=== PATIENT | male | born 1955 | race Caucasian/White ===

== ENCOUNTER 2016-10-16 11:56 | Inpatient (IN) | payer MEDICARE, MEDICAID ==
[2016-10-16] MEDS ORDERED: Sodium Chloride 0.9% 1,000 ML IV ONE ×2 (12:29→16:52)
--- NOTE | 2016-10-16 12:34 | ED Physician Chart ---
Chief Complaint/HPI - Patient Information Date Seen:: 10/16/16 Time Seen:: 12:15 Chief Complaint:: CHEST CONGESTION TODAY, VOMITTED X 1 History of Present Illness:: This 61 year-old male was brought to the emergency department by an EMS rescue for evaluation of chest congestion and possible aspiration pneumonia. The patient is severely demented and is unable to provide any historical information. Patient is unable to provide his own name. Notes which accompanied the patient states that his had onset of cough and chest congestion today and that in the past he's been diagnosed with aspiration pneumonia. He has a gastrostomy tube that is his source of feeding. The patient was observed to have vomited times one today. There was no additional information with the transport paperwork. Allergies:: Allergies Allergy/AdvReac Type Severity Reaction Status Date / Time BEE STING Allergy Uncoded 12/25/14 07:41 Vitals:: Vital Signs - 8 hr 10/16/16 12:09 Temp 98.7 F HR 92 RR 16 BP 117/58 O2 Sat % 90 Review of Systems - Review of Systems General/Constitutional: Other (the patient is to mentally impaired to obtain a reliable review of systems.) Past Medical History - Past Medical History Past Medical History: HTN, Asthma/COPD, PUD/GERD, Thyroid disorder, Dementia, Other (hypothyroid and history of bronchitis.) Social History: Care Facility (unknown surgical history.) Family Medical History - Family Member Mother History Unknown: Yes Ethnicity: Living Status: Unknown Hx Family Cancer: (BREE) Hx Family Coronary Artery Disease: (BREE) Hx Family Congestive Heart Failure: (BREE) Hx Family Hypertension: (BREE) Hx Family Stroke: (BREE) Hx Family Diabetes: (BREE) Hx Family Seizures: (BREE) Hx Family Dementia: (BREE) Hx Family AIDS: (BREE) Hx Family HIV: No Hx Family COPD: (BREE) Hx Family Hepatitis: (BREE) Hx Family Psychiatric Problems: (BREE) Hx Family Tuberculosis: (BREE) Physical Exam - Physical Examination General/Constitutional: Awake (it appears to be alert and does not follow simple commands such as to gout your tongue, squeeze my fingers, or look at the flashlight.) Head: Atraumatic Eyes: PERRL, EOMI Other Eyes comments:: The patient has a mild discharge of purulent material from both eyes. There is minimal hyperemia of the conjunctiva. Skin: Nl inspection, No rash, No skin lesions, No ecchymosis, No lymphadenopathy ENMT: External ears, nose nl, Nasal exam nl Other ENMT comments:: Patient is missing multiple teeth and what teeth remain are affected by extensive caries. Patient's gag reflex is intact. Other Neck comments:: No JVD appreciated in the neck. Neck is very stiff with attempted AP flexion and lateral rotation. Cervical lymphadenopathy. No thyromegaly or thyroid nodules. Respiratory: Nl effort/Exclusion, Clear to Auscultation, No Wheeze/Rhonchi/Rales Other Respiratory comments:: The patient has good breath sounds in the anterior chest and in the upper lobes of both the right of the left posterior chest. Breath sounds are markedly decreased in the basilar regions of both the right in the left lower chest. No wheezing or rales were appreciated on auscultation. Cardio Vascular: RRR, No murmur, gallop, rubs, NL S1 S2 Other Cardio Vascular comments:: Patient has adequate pulses in all 4 extremities. GI: No tenderness/rebounding/guarding, No organomegaly, No hernia, Normal BS's, Nondistended, No McBurney tenderness Other GI comments:: Rectal examination was deferred at my discretion. : No CVA tenderness Other comments:: Patient is circumcised and there are no testicular masses or tenderness. Both testicles appear to be significantly atrophied. Extremities: No tenderness or effusion, No edema Other Extremities comments:: The patient is able to move all 4 extremities and lift his legs up off the bed. He reflexively did this one he wanted to pull down his pants below his knees. Other Neuro/Psych comments:: Alert but completely noncommunicative. He withdraws to stimuli in both the upper and lower extremities. Labs/Radiology/EKG Results - Lab Results Results: Laboratory Results - last 24 hr 10/16/16 10/16/16 10/16/16 12:40 12:50 12:50 WBC 8.7 RBC 4.33 Hgb 12.5 L Hct 36.8 L D MCV 85.1 MCH 28.8 MCHC Differential 33.8 RDW 15.8 Plt Count 118 L D MPV 10.3 Band Neutrophils % 7 Neutrophils (Manual) 83 H Lymphocytes 4 L Monocytes 6 Platelet Estimate DECREASED PLATELETS Platelet Morphology NORMAL RBC Morph Micro Appear NORMAL Sodium 137 Potassium 4.5 Chloride 106 Carbon Dioxide 30.9 Anion Gap 4.6 L BUN 29 H Creatinine 0.7 Est GFR ( Amer) > 60.0 Est GFR (Non-Af Amer) > 60.0 BUN/Creatinine Ratio 41.4 Glucose 115 H Whole Bld Lactic Acid Calcium 9.4 Total Bilirubin 0.2 L AST 32 ALT 26 Alkaline Phosphatase 90 Total Protein 6.9 Albumin 3.3 L Globulin 3.6 Albumin/Globulin Ratio 0.9 L Urine Source [place] Urine Color YELLOW Urine Clarity SL. CLOUDY Urine pH 7.5 Ur Specific [place] 1.020 Urine Protein NEGATIVE Urine Glucose (UA) NEGATIVE Urine Ketones NEGATIVE Urine Blood NEGATIVE Urine Nitrate NEGATIVE Urine Bilirubin NEGATIVE Urine Urobilinogen 0.2 Ur Leukocyte Esterase NEGATIVE Urine RBC 0-1 Urine WBC 2-5 H Ur Epithelial Cells FEW Urine Bacteria NONE SEEN 10/16/16 12:50 WBC RBC Hgb Hct MCV MCH MCHC Differential RDW Plt Count MPV Band Neutrophils % Neutrophils (Manual) Lymphocytes Monocytes Platelet Estimate Platelet Morphology RBC Morph Micro Appear Sodium Potassium Chloride Carbon Dioxide Anion Gap BUN Creatinine Est GFR ( Amer) Est GFR (Non-Af Amer) BUN/Creatinine Ratio Glucose Whole Bld Lactic Acid 1.22 Calcium Total Bilirubin AST ALT Alkaline Phosphatase Total Protein Albumin Globulin Albumin/Globulin Ratio Urine Source Urine Color Urine Clarity Urine pH Ur Specific [place] Urine Protein Urine Glucose (UA) Urine Ketones Urine Blood Urine Nitrate Urine Bilirubin Urine Urobilinogen Ur Leukocyte Esterase Urine RBC Urine WBC Ur Epithelial Cells Urine Bacteria Laboratory Results - last 24 hr 10/17/16 10/17/16 10/17/16 06:33 06:33 06:33 WBC 5.5 D RBC 4.39 Hgb 12.7 L Hct 37.3 L MCV 84.9 MCH 28.9 MCHC Differential 34.0 RDW 15.7 Plt Count 95 L MPV 10.0 Band Neutrophils % 16 H Neutrophils (Manual) 76 Lymphocytes 4 L Monocytes 4 Platelet Estimate DECREASED [place] Platelet Morphology NORMAL RBC Morph Micro Appear NORMAL PT 15.6 H INR 1.54 H Sodium 139 Potassium 4.3 Chloride 107 Carbon Dioxide 28.2 Anion Gap 8.1 BUN 28 H Creatinine 0.8 Est GFR ( Amer) > 60.0 Est GFR (Non-Af Amer) > 60.0 BUN/Creatinine Ratio 35.0 Glucose 122 H Calcium 9.1 Magnesium 2.0 B-Natriuretic Peptide 332.0 H LAB INTERPRETATION: the CBC shows no evidence of leukocytosis or significant anemia. The urinalysis is negative for acute UTI. Serum electrolytes were within normal values. There was mild elevation of the serum glucose in the 110 to 120 range. There is mild elevation of the BUN with normal creatinine levels suggesting renal function is normal. The serum lactic acid was within normal parameters. SINGLE VIEW CXR: No cardiomegaly. No CHF. There is increased density of the interstitium in the right lower lungs zone. As noted by radiology this could represent an early aspiration pneumonia. IMPRESSION: possible early aspiration pneumonia in the right lower lung zone. - EKG Interpretations EKG Time:: 12:39 Rhythm: NORMAL SINUS RHYTHM with no ectopy. [place]: NORMAL Rate: 80 Assessment - Assessment General Assessment: CASE SUMMARY: this 61-year-old male was sent to the emergency department for evaluation cough and chest congestion which may represent aspiration pneumonia. The patient is aphasic and unable to provide any further information. paperwork accompanying the patient said that he has had aspiration pneumonia in the past. On physical examination the patient has rows in the right basilar region. Chest x-ray shows increased density of the interstitial markings in the right lower lung zone as well. The CBC was negative for any leukocytosis. The urinalysis was negative for any evidence of a UTI. The serum lactate was within the normal range. The case was discussed with Dr. Sellers and it was decided to admit the patient for antibiotics and to follow to see if he developed pneumonia. ED Septic Shock - . Is Septic Shock (SBP<90, OR Lactate>4 mmol\L) present?: No - <6hrs of presentation: Vital Signs: Vital Signs - 8 hr 10/16/16 12:09 Temp 98.7 F HR 92 RR 16 BP 117/58 O2 Sat % 90 Reassessment (Disposition) - Reassessment Reassessment Condition:: Unchanged - Diagnosis Diagnosis:: POSSIBLE ASSPIRATION PNEUMONIA. SEVERE DEMENTIA. GASTROSTOMY TUBE. ESTABLISHED HYPERTENSION - Patient Disposition Discharge/Transfer:: Acute Care w/in this hosp Accepting Physician:: Dr. Sellers ED Discharge Plan - Patient Disposition Admit/Discharge/Transfer: Other Care w/in this hosp Condition at Disposition: Unchanged
[2016-10-16 13:21] LABS: URINE BILIRUBIN NEGATIVE (NEGATIVE); URINE BLOOD NEGATIVE (NEGATIVE); URINE COLOR YELLOW; URINE GLUCOSE (UA) NEGATIVE (NEGATIVE); URINE KETONE NEGATIVE (NEGATIVE); URINE PH 7.5; URINE PROTEIN NEGATIVE (NEGATIVE); URINE UROBILINOGEN 0.2 E.U./dL (0.2 - 1.0)
[2016-10-16 13:29] LABS: HEMOGLOBIN 12.5 gm/dL (13.2-17.3); MEAN CELL VOLUME 85.1 fl (80-99); MEAN CORPUSCULAR HEMOGLOBIN 28.8 pg (26.0-30.0); MEAN CORPUSCULAR HGB CONC 33.8 pg (28.0-36.0); MEAN PLATELET VOLUME 10.3 fl; RED BLOOD COUNT 4.33 Mil/cmm (4.30-5.70); RED CELL DISTRIBUTION WIDTH 15.8 % (11.5-20.0); WHITE BLOOD COUNT 8.7 Th/cmm (4.8-10.8)
[2016-10-16 13:31] LABS: HEMATOCRIT 36.8 % (39.0-49.0); PLATELET COUNT 118 Th/cmm (150-400)
[2016-10-16 13:45] LABS: ALB/GLOB RATIO 0.9 (1.0-1.8); ALKALINE PHOSPHATASE 90 U/L (34-104); ANION GAP 4.6 (7.0-16.0); BILIRUBIN,TOTAL 0.2 mg/dL (0.3-1.0); BUN - UREA NITROGEN 29 mg/dL (7-25); BUN/CREATININE RATIO 41.4; CALCIUM SERUM 9.4 mg/dL (8.6-10.3); CARBON DIOXIDE 30.9 mEq/L (21.0-31.0); CHLORIDE 106 mEq/L (98-107); CREATININE - SERUM 0.7 mg/dL (0.7-1.3); GLUCOSE 115 mg/dL (70-105); POTASSIUM SERUM 4.5 mEq/L (3.5-5.1); SGOT 32 U/L (13-39); SGPT/ALT 26 U/L (7-52); SODIUM SERUM 137 mEq/L (136-145)
[2016-10-16 13:48] LABS: BAND NEUTROPHILE 7 % (0-10); NEUTROPHILS 83 % (40-80); PLATELET ESTIMATE DECREASED PLATELETS (NORMAL); PLATELET MORPHOLOGY NORMAL (NORMAL); TOTAL CELLS COUNTED 100
[2016-10-16 13:58] LABS: URINE BACTERIA NONE SEEN /hpf (NONE SEEN); URINE EPITHELIAL CELLS FEW /lpf (FEW); URINE RBC 0-1 /hpf (0-5)
--- NOTE | 2016-10-16 14:21 | Diagnostic Imaging Report ---
CHEST X-RAY: AP view INDICATION: Congestion COMPARISON: 06/06/2016 FINDINGS: No focal consolidation or pleural effusions. Increased interstitial lung markings are noted. Heart size is normal. Degenerative changes of the spine are noted. IMPRESSION: Increased interstitial lung markings favoring chronic lung changes. No focal consolidation or evidence of west CHF.
[2016-10-16] MEDS ORDERED: Magnesium Hydroxide (MOM) 30 mL UDC GT PRN (16:01)
[2016-10-16] MEDS ORDERED: Fleet Enema 135 mL RC PRN (16:01)
[2016-10-16] MEDS ORDERED: Albuterol Nebulizer 2.5mg/3mL HHN PRN (16:01)
[2016-10-16] MEDS ORDERED: WARFARIN SODIUM 8 MG GT SCH (17:00)
[2016-10-16] MEDS ORDERED: cefTRIAXone 1 GM in Sodium Chloride 0.9% 50 ML IV SCH (18:00)
[2016-10-16] MEDS: Calcium Carb/Vit D 500 mg/200 U Tab GT SCH (18:35)
[2016-10-16] MEDS: Lactobacillus Rhamnosus 10 Billion CFU Capsule GT SCH (18:35)
[2016-10-16] MEDS: Ferrous Sulfate 300 MG/5 ML UDC GT SCH (18:40)
[2016-10-16] MEDS: Docusate Sodium 100 mg/10 mL UD GT SCH (18:40)
[2016-10-16] MEDS: Azithromycin 500 MG in Sodium Chloride 0.9% 250 ML IV SCH (19:47)
[2016-10-16] MEDS: metroNIDAZOLE 500mg/NS 100mL 500 MG/100 ML BAG IV SCH (22:00)
[2016-10-16] MEDS: Promethazine DM 6.25/15mg-5mL 5 ML SYR GT PRN (22:04)
[2016-10-16] MEDS: Albuterol/Ipratropium Neb 3 ML AERS HHN PRN (22:24)
[2016-10-17] MEDS: Promethazine DM 6.25/15mg-5mL 5 ML SYR GT PRN (02:28)
[2016-10-17] MEDS: metroNIDAZOLE 500mg/NS 100mL 500 MG/100 ML BAG IV SCH ×3 (06:46→21:29)
[2016-10-17] MEDS: Lactobacillus Rhamnosus 10 Billion CFU Capsule GT SCH ×2 (06:47→16:45)
[2016-10-17 06:55] LABS: HEMATOCRIT 37.3 % (39.0-49.0); HEMOGLOBIN 12.7 gm/dL (13.2-17.3); MEAN CELL VOLUME 84.9 fl (80-99); MEAN CORPUSCULAR HEMOGLOBIN 28.9 pg (26.0-30.0); PLATELET COUNT 95 Th/cmm (150-400); RED BLOOD COUNT 4.39 Mil/cmm (4.30-5.70); RED CELL DISTRIBUTION WIDTH 15.7 % (11.5-20.0)
[2016-10-17 07:26] LABS: ANION GAP 8.1 (7.0-16.0); BUN - UREA NITROGEN 28 mg/dL (7-25); CALCIUM SERUM 9.1 mg/dL (8.6-10.3); CARBON DIOXIDE 28.2 mEq/L (21.0-31.0); CHLORIDE 107 mEq/L (98-107); CREATININE - SERUM 0.8 mg/dL (0.7-1.3); GLUCOSE 122 mg/dL (70-105); POTASSIUM SERUM 4.3 mEq/L (3.5-5.1); SODIUM SERUM 139 mEq/L (136-145)
[2016-10-17 07:35] LABS: WHITE BLOOD COUNT 5.5 Th/cmm (4.8-10.8)
[2016-10-17 07:36] LABS: INR 1.54 (0.5-1.4); PROTHROMBIN TIME (TEST) 15.6 SECONDS (9.5-11.5)
[2016-10-17] MEDS: Pantoprazole 40 mg/Packet GT SCH (09:20)
[2016-10-17] MEDS: Ferrous Sulfate 300 MG/5 ML UDC GT SCH ×2 (09:20→16:45)
[2016-10-17] MEDS: Levothyroxine 0.05 Mg Tab GT SCH (09:22)
[2016-10-17] MEDS: Calcium Carb/Vit D 500 mg/200 U Tab GT SCH ×2 (09:22→16:45)
[2016-10-17] MEDS: Docusate Sodium 100 mg/10 mL UD GT SCH ×2 (09:22→16:45)
[2016-10-17 09:25] LABS: BAND NEUTROPHILE 16 % (0-10); NEUTROPHILS 76 % (40-80); PLATELET ESTIMATE DECREASED PLATELETS (NORMAL); PLATELET MORPHOLOGY NORMAL (NORMAL); TOTAL CELLS COUNTED 100
--- NOTE | 2016-10-17 11:00 | History & Physical ---
CHIEF COMPLAINT: Chest congestion, cough and emesis. HISTORY OF PRESENT ILLNESS: A 61-year-old male who has a history of a complicated pneumonias/aspiration pneumonia, severe intellectual disability, chronic bronchitis, hypertension, hypothyroidism, history of autism, acid reflux disease, ischemic colitis, anemia and recently diagnosed DVT, who has who has been admitted to this facility couple times in the last few months for similar symptoms, namely cough, chest congestion and fevers. He has been treated for complicated pneumonias and was brought in yesterday to the ER with a 1-day history of congestion, severe coughing spells and emesis x 1. Pertinent findings include a chest x-ray showing increased interstitial lung markings favoring chronic lung changes. There is no focal consolidation or evidence of west CHF. The patient has been admitted to the medical/surgical floor for management and care. PAST MEDICAL HISTORY: As noted above. He also has history of dysphagia status post PEG placement. PAST SURGICAL HISTORY: Include PEG placement. FAMILY HISTORY: Noncontributory. SOCIAL HISTORY: No tobacco, ETOH or illicit drug usage. Lives at [facility] under the care of Dr. Garber. REVIEW OF SYSTEMS: A good review of systems was not able to be done given the patient is aphasic, but per notes: GENERAL: There is history of fevers. CARDIAC: No chest pain, but congestion. PULMONARY: Some shortness of breath upon coughing. GASTROINTESTINAL: There is 1 episode of emesis. Since been admitted, he also had another episode, but there is no abdominal distention noted on reports. There is no residuals reported as well. GENITOURINARY: There is no mention of incontinence, dysuria or hematuria. NEUROLOGIC: Unable to obtain. PHYSICAL EXAMINATION: VITAL SIGNS: Temperature 100.0, T-max 101, pulse 67, respirations 18, BP 138/70, on 2 liters, he is satting 100%. GENERAL: He is a well-nourished mentally disabled male seen currently in a position, does not appear to be in any respiratory distress. He does not appear to be toxic at this time. HEAD AND NECK: Normocephalic, atraumatic. CARDIOVASCULAR: Regular rate and rhythm without S1 and S2. LUNGS: There are crackles bilaterally, more noticeable on the right side. There is no wheezing noted. ABDOMEN: Soft, supple, nontender, nondistended, normoactive bowel sounds. There is a PEG tube in place. LOWER EXTREMITIES: There is no pedal edema. LABORATORY DATA: White count 8.7, H and H 12/36, platelet count 118 with 83% neutrophils. Chemistry shows a BUN of 29, creatinine 0.7, glucose 115, otherwise within normal limits. Lactic acid was 1.22. LFTs were essentially within normal limits. BNP was 332, albumin 3.3. UA shows 2- 5 wbc's, nitrite negative, leukocyte esterase negative. DIAGNOSTICS: Chest x-ray. Please refer to the HPI. IMPRESSION: 1. Likely recurrent respiratory infection given his symptoms, rule out bronchitis, tracheobronchitis versus early pneumonia, which include aspiration pneumonia. 2. History of recent complicated pneumonias. 3. Fever, rule out sepsis. 4. History of chronic obstructive pulmonary disease, chronic bronchitis. 5. History of hypertension. 6. History of hypothyroidism. 7. History of chronic anemia. 8. History of severe intellectual activity, autism. 9. Recent history of lower extremity deep vein thrombosis. PLAN: The patient has been admitted to the medical floor where he has been placed on IV antibiotics, namely Rocephin and Zithromax. However, given his history and his spike in temperatures, we will discontinue the Rocephin and add cefepime for better coverage. He also has been started on Flagyl given his aspiration history. DuoNeb and oxygen have also been started and a followup x-ray has been asked for. Pulmonary compensation consultant will be asked to see the patient given his previous histories, and at this time, the patient will be also kept on his other medications as scheduled. I will ask for a KUB given his history of aspiration to rule out ileus. Daily labs and as mentioned above followup x-rays will be done. JOB# [id number] MARGIE
[2016-10-17] MEDS: Cefepime 1 GM in Sodium Chloride 0.9% 50 ML IV SCH ×2 (13:07→21:28)
--- NOTE | 2016-10-17 13:18 | Diagnostic Imaging Report ---
CHEST X-RAY: AP view INDICATION: Pneumonia COMPARISON: Chest x-ray 10/16/2016 FINDINGS: Increased interstitial lung markings are seen with right basal atelectatic changes. No focal consolidation identified. Heart size is normal. No effusions. IMPRESSION: Increased interstitial lung markings. Note that a marginal degree of congestion cannot be excluded. Right basal atelectatic changes. Developing infiltrate of the right lung base cannot be completely excluded.
--- NOTE | 2016-10-17 13:19 | Diagnostic Imaging Report ---
KUB History: Pain Comparison: CT abdomen and pelvis on 12/25/2014 Findings: An IVC filter is noted at the L2/L3 level. Copious amount of stool is seen with gaseous filled loops of bowel distal fecal impaction. A percutaneous feeding tube is partially visualized. A right hip prosthesis is noted. Degenerative changes of the spine are noted with scoliosis. IMPRESSION: Copious amount of stool with distal fecal impaction and gas-filled loops of bowel. Please correlate for constipation Postsurgical changes as above..
[2016-10-17] MEDS: Azithromycin 500 MG in Sodium Chloride 0.9% 250 ML IV SCH (16:15)
[2016-10-18] MEDS: Promethazine DM 6.25/15mg-5mL 5 ML SYR GT PRN (02:42)
--- NOTE | 2016-10-18 03:46 | Consultation ---
A patient of Dr. Casas. Thank you Dr. Casas for this consultation. HISTORY OF PRESENT ILLNESS: This is a 61-year-old male with history of mental retardation, who presented with dysphagia, G-tube feeding. presents with fever, nausea, vomiting, admitted for further treatment and management. The patient has some congestion and appears to be comfortable, G-tube feeding on hold. PAST MEDICAL HISTORY: As above, in addition to history of recent DVT and history of ischemic colitis. SOCIAL HISTORY: History of smoking, drinking and a prison resident. REVIEW OF SYSTEMS: Unable to obtain because of the patient's condition. PHYSICAL EXAMINATION: GENERAL: The patient is arousable, not in acute distress. VITAL SIGNS: Temperature is 99.8, pulse 72, respiration is 17, blood pressure 112/60, saturation 94%-100%. HEENT: Atraumatic, normocephalic. Pupils reactive to light and accommodation. Ears, nose and throat normal. NECK: Supple. No JVD. CHEST: There are minimal rhonchi in the bases bilaterally, no wheezing. HEART: Regular rate and rhythm. ABDOMEN: Soft. LOWER EXTREMITIES: No edema. LABORATORY DATA: The WBC is 5.5, hemoglobin 12.7, hematocrit 37.3, platelets is 95. Sodium is 139, potassium 4.3, BUN is 28, creatinine 0.8. Chest x-ray, minimal congestion in the bases. IMPRESSION: This is a 61-year-old male with nausea, vomiting, fever, possibly early pneumonia in addition to gastrointestinal issues causing the above symptoms. PLAN: 1. I agree with IV antibiotics. The patient took Flagyl. 2. Suggest GI evaluation. 3. Followup chest x-ray. 4. Nebulizer treatment and oxygen supplementation. I will follow the patient with you. Thank you very much for this consultation. JOB# [id number] MARGIE
[2016-10-18] MEDS: Cefepime 1 GM in Sodium Chloride 0.9% 50 ML IV SCH ×3 (04:32→20:10)
[2016-10-18] MEDS: metroNIDAZOLE 500mg/NS 100mL 500 MG/100 ML BAG IV SCH ×3 (04:33→20:11)
[2016-10-18] MEDS: Lactobacillus Rhamnosus 10 Billion CFU Capsule GT SCH ×2 (04:33→16:53)
[2016-10-18 07:03] LABS: ANION GAP 5.6 (7.0-16.0); BUN - UREA NITROGEN 31 mg/dL (7-25); BUN/CREATININE RATIO 38.8; CALCIUM SERUM 8.4 mg/dL (8.6-10.3); CARBON DIOXIDE 30.3 mEq/L (21.0-31.0); CHLORIDE 108 mEq/L (98-107); CREATININE - SERUM 0.8 mg/dL (0.7-1.3); GLUCOSE 131 mg/dL (70-105); POTASSIUM SERUM 3.9 mEq/L (3.5-5.1); SODIUM SERUM 140 mEq/L (136-145)
[2016-10-18 07:05] LABS: HEMOGLOBIN 11.2 gm/dL (13.2-17.3); MEAN CELL VOLUME 84.3 fl (80-99); MEAN CORPUSCULAR HEMOGLOBIN 28.7 pg (26.0-30.0); MEAN PLATELET VOLUME 10.7 fl; PLATELET COUNT 85 Th/cmm (150-400); RED BLOOD COUNT 3.92 Mil/cmm (4.30-5.70); RED CELL DISTRIBUTION WIDTH 15.6 % (11.5-20.0); WHITE BLOOD COUNT 4.8 Th/cmm (4.8-10.8)
--- NOTE | 2016-10-18 07:38 | Admit Criteria Form ---
Admit Criteria Forms - Admit Criteria Diagnosis: PNEUMONIA DUE TO ASPIRATION Clinical Indications for Admission to Inpatient Care (Place 'X' for any and all applicable criteria): Admission is indicated for ANY ONE of the following(1)(2)(3): [X ]I. Respiratory abnormalities [ ]II. Hemodynamic instability [ ]III. Aspiration pneumonitis associated with an acute event (eg, neurologic change, massive emesis, drug overdose) [ ]IV. Patient receives chronic care in a setting (eg, fdc care, group home facility) where care for the aspiration has failed or cannot be provided (eg, patient is clinically unstable, and aggressive medical care is desired) (4) Extended stay beyond goal length of stay may be needed for(1)(6): [ ]a) Continued aspiration [ ]b) Empyema, atelectasis, large pleural effusion or lung abscess [ ]c) Severe hypoxemia or respiratory failure [ ]d) Comorbid clinically significant electrolyte disorder or acute renal injury (eg, hypernatremia, hyponatremia) [ ]e) Need for parenteral or tube (enteral) feedings (eg, severe malnutrition) [ ]f) Active comorbidities (eg, heart failure, COPD, renal failure) [ ]g) Comorbid severe neurologic problems(2)(17) The original [facility] content created by [employer] has been revised. The portions of the content which have been revised are identified through the use of italic text or in bold, and [facility] has neither reviewed nor approved the modified material. All other unmodified content is copyright [facility]. Please see references footnoted in the original [facility] edition 2016 Admit Criteria Met?: Yes
[2016-10-18] MEDS: Pantoprazole 40 mg/Packet GT SCH (09:17)
[2016-10-18] MEDS: Docusate Sodium 100 mg/10 mL UD GT SCH ×2 (09:17→16:54)
[2016-10-18] MEDS: Ferrous Sulfate 300 MG/5 ML UDC GT SCH ×2 (09:17→16:53)
[2016-10-18] MEDS: Calcium Carb/Vit D 500 mg/200 U Tab GT SCH ×2 (09:18→16:54)
[2016-10-18] MEDS: Levothyroxine 0.05 Mg Tab GT SCH (09:19)
[2016-10-18] MEDS: Lactulose 10 Gm/15 mL 30mL UDC GT SCH ×2 (10:30→16:53)
[2016-10-18] MEDS: Docusate Sodium/Senna Tab PO SCH ×2 (10:30→16:55)
[2016-10-18 10:44] LABS: BAND NEUTROPHILE 27 % (0-10); NEUTROPHILS 60 % (40-80); PLATELET ESTIMATE DECREASED PLATELETS (NORMAL); PLATELET MORPHOLOGY NORMAL (NORMAL); TOTAL CELLS COUNTED 100
[2016-10-18] MEDS: Albuterol/Ipratropium Neb 3 ML AERS HHN PRN (14:12)
[2016-10-18] MEDS: Azithromycin 500 MG in Sodium Chloride 0.9% 250 ML IV SCH (16:53)
[2016-10-19] MEDS: D5-0.45NS 1,000 ML IV SCH (04:24)
[2016-10-19] MEDS: Lactobacillus Rhamnosus 10 Billion CFU Capsule GT SCH ×2 (04:24→17:00)
[2016-10-19] MEDS: Cefepime 1 GM in Sodium Chloride 0.9% 50 ML IV SCH ×3 (04:24→20:52)
[2016-10-19] MEDS: metroNIDAZOLE 500mg/NS 100mL 500 MG/100 ML BAG IV SCH ×3 (04:30→22:00)
[2016-10-19] MEDS: Promethazine DM 6.25/15mg-5mL 5 ML SYR GT PRN (04:30)
[2016-10-19 07:27] LABS: HEMATOCRIT 33.1 % (39.0-49.0); HEMOGLOBIN 11.2 gm/dL (13.2-17.3); MEAN CELL VOLUME 86.4 fl (80-99); MEAN CORPUSCULAR HEMOGLOBIN 29.1 pg (26.0-30.0); MEAN CORPUSCULAR HGB CONC 33.7 pg (28.0-36.0); MEAN PLATELET VOLUME 10.6 fl; PLATELET COUNT 84 Th/cmm (150-400); RED BLOOD COUNT 3.83 Mil/cmm (4.30-5.70); RED CELL DISTRIBUTION WIDTH 15.8 % (11.5-20.0); WHITE BLOOD COUNT 4.7 Th/cmm (4.8-10.8)
[2016-10-19 07:47] LABS: ANION GAP 1.9 (7.0-16.0); BUN - UREA NITROGEN 29 mg/dL (7-25); BUN/CREATININE RATIO 41.4; CALCIUM SERUM 8.4 mg/dL (8.6-10.3); CARBON DIOXIDE 30.9 mEq/L (21.0-31.0); CHLORIDE 113 mEq/L (98-107); CREATININE - SERUM 0.7 mg/dL (0.7-1.3); GLUCOSE 192 mg/dL (70-105); POTASSIUM SERUM 3.8 mEq/L (3.5-5.1); SODIUM SERUM 142 mEq/L (136-145)
[2016-10-19 07:54] LABS: INR 2.81 (0.5-1.4); PROTHROMBIN TIME (TEST) 29.7 SECONDS (9.5-11.5)
[2016-10-19 09:04] LABS: BAND NEUTROPHILE 17 % (0-10); NEUTROPHILS 69 % (40-80); TOTAL CELLS COUNTED 100
[2016-10-19 09:05] LABS: PLATELET ESTIMATE DECREASED PLATELETS (NORMAL); PLATELET MORPHOLOGY GIANT PLATELETS SEEN (NORMAL)
[2016-10-19] MEDS: Pantoprazole 40 mg/Packet GT SCH (09:05)
[2016-10-19] MEDS: Docusate Sodium/Senna Tab PO SCH ×2 (09:15→17:30)
[2016-10-19] MEDS: Calcium Carb/Vit D 500 mg/200 U Tab GT SCH ×2 (09:20→17:05)
[2016-10-19] MEDS: Levothyroxine 0.05 Mg Tab GT SCH (09:30)
[2016-10-19] MEDS: Docusate Sodium 100 mg/10 mL UD GT SCH ×2 (09:30→17:30)
[2016-10-19] MEDS: Ferrous Sulfate 300 MG/5 ML UDC GT SCH ×2 (09:35→17:04)
[2016-10-19] MEDS: Lactulose 10 Gm/15 mL 30mL UDC GT SCH ×2 (10:59→17:30)
--- NOTE | 2016-10-19 11:14 | Diagnostic Imaging Report ---
Portable chest x-ray HISTORY: Shortness of breath The overall heart size is difficult to assess with portable technique in a poor inspiration. Poor inspiration has resulted in slight accentuation of the interstitial markings. Allowing for this factor, no focal pulmonary processes are seen. IMPRESSION: 1. No acute focal pulmonary processes
[2016-10-19] MEDS ORDERED: Fleet Enema 135 mL RC ONE (15:00)
--- NOTE | 2016-10-19 16:27 | Consultation ---
REFERRING PHYSICIAN: Cruz Casas M.D. REASON FOR CONSULTATION: Dysphagia. HISTORY OF PRESENT ILLNESS: A 61-year-old male with history of mental retardation, autism, chronic bronchitis, hypertension, hypothyroidism, GERD, ischemic colitis, chronic anemia and lower extremity DVT, on Coumadin. The patient was admitted for possible recurrent aspiration pneumonia. He was also noted on KUB to have fecal impaction and he had some distention on examination. PAST MEDICAL HISTORY: As above. MEDICATIONS: Here are Tylenol p.r.n., albuterol nebulizer DuoNeb nebulizer, Norvasc, azithromycin, Tessalon Perles p.r.n., Dulcolax suppository p.r.n., Os-Wilman D, cefepime, clonidine, IV fluids, Colace, iron, Culturelle, lactulose 15 grams per G-tube b.i.d., Synthroid, Milk of Magnesia p.r.n., magnesium oxide daily, Flagyl, Protonix, Phenergan p.r.n., senna twice daily, Fleet enema p.r.n., Depakene and warfarin. ALLERGIES: BEE STINGS. SOCIAL HISTORY: No known tobacco or drugs. FAMILY HISTORY: Noncontributory. REVIEW OF SYSTEMS: A comprehensive 12-point review of system was conducted and is only positive for the signs and symptoms present in the history of present illness. PHYSICAL EXAMINATION: VITAL SIGNS: Temperature of 98.1, blood pressure 126/55, pulse 63, respirations 18, O2 sat 96%. GENERAL: He well-developed, chronically ill-appearing male, in no acute distress. HEENT: Sclerae are nonicteric. Oropharynx is clear. CARDIOVASCULAR: Regular rate and rhythm. LUNGS: Clear to auscultation bilaterally. ABDOMEN: Soft, slightly distended. Normoactive bowel sounds. Intact G-tube. EXTREMITIES: No clubbing, cyanosis or edema. RECTAL: Deferred. LABORATORY DATA AND IMAGING: WBC 4.7, hemoglobin 11.2, platelet count is 84. INR is 2.8. Sodium is 142, creatinine is 0.7. Liver enzymes are normal. KUB shows fecal impaction. ASSESSMENT: 1. Dysphagia with history of G-tube with possible aspiration. 2. Abdominal distention, rule out ileus versus constipation, but KUB does show fecal impaction. 3. History of mental retardation, chronic bronchitis, hypertension, hypothyroidism, gastroesophageal reflux disease, history of ischemic colitis, chronic anemia and history of lower extremity deep venous thrombosis, on Coumadin. RECOMMENDATIONS: 1. Laxatives will be given per G-tube and per rectum. 2. Check KUB to monitor constipation. 3. G-tube feedings to be started at low rate and advance as tolerated. Thank you, Dr. Cruz Casas for involving us in the care of your patient. Any further questions, please call us. JOB# [id number]
[2016-10-19] MEDS: Azithromycin 500 MG in Sodium Chloride 0.9% 250 ML IV SCH (18:42)
[2016-10-20] MEDS: D5-0.45NS 1,000 ML IV SCH (04:51)
[2016-10-20] MEDS: metroNIDAZOLE 500mg/NS 100mL 500 MG/100 ML BAG IV SCH ×3 (05:28→21:34)
[2016-10-20] MEDS: Lactobacillus Rhamnosus 10 Billion CFU Capsule GT SCH ×2 (05:40→16:27)
[2016-10-20] MEDS: Cefepime 1 GM in Sodium Chloride 0.9% 50 ML IV SCH (06:12)
[2016-10-20 06:37] LABS: INR 2.01 (0.5-1.4); PROTHROMBIN TIME (TEST) 20.8 SECONDS (9.5-11.5)
[2016-10-20 06:52] LABS: BUN - UREA NITROGEN 24 mg/dL (7-25); BUN/CREATININE RATIO 34.3; CALCIUM SERUM 8.5 mg/dL (8.6-10.3); CARBON DIOXIDE 35.5 mEq/L (21.0-31.0); CHLORIDE 112 mEq/L (98-107); CREATININE - SERUM 0.7 mg/dL (0.7-1.3); GLUCOSE 120 mg/dL (70-105); POTASSIUM SERUM 3.5 mEq/L (3.5-5.1); SODIUM SERUM 152 mEq/L (136-145)
[2016-10-20 07:12] LABS: % BASOPHILS 0.2 % (0.0-2.0); % EOSINOPHILS 0.2 % (0.0-5.0); % LYMPHOCYTES 34.5 % (20.0-50.0); % MONOCYTES 8.5 % (2.0-10.0); % NEUTROPHILS 56.6 % (40.0-80.0); HEMATOCRIT 33.4 % (39.0-49.0); HEMOGLOBIN 11.3 gm/dL (13.2-17.3); MEAN CELL VOLUME 85.2 fl (80-99); MEAN CORPUSCULAR HEMOGLOBIN 28.9 pg (26.0-30.0); MEAN CORPUSCULAR HGB CONC 33.9 pg (28.0-36.0); MEAN PLATELET VOLUME 10.5 fl; NEUTROPHILE ABSOLUTE 1.7 Th/cmm (1.8-8.0); PLATELET COUNT 79 Th/cmm (150-400); RED BLOOD COUNT 3.92 Mil/cmm (4.30-5.70); RED CELL DISTRIBUTION WIDTH 15.6 % (11.5-20.0)
[2016-10-20] MEDS: Albuterol/Ipratropium Neb 3 ML AERS HHN PRN ×4 (08:29→15:11)
[2016-10-20] MEDS: Docusate Sodium 100 mg/10 mL UD GT SCH ×2 (08:52→16:24)
[2016-10-20] MEDS: Ferrous Sulfate 300 MG/5 ML UDC GT SCH ×2 (08:52→16:25)
[2016-10-20] MEDS: Pantoprazole 40 mg/Packet GT SCH (08:53)
[2016-10-20] MEDS: Lactulose 10 Gm/15 mL 30mL UDC GT SCH ×2 (08:53→16:24)
[2016-10-20] MEDS: Levothyroxine 0.05 Mg Tab GT SCH (08:54)
[2016-10-20] MEDS: Docusate Sodium/Senna Tab PO SCH ×2 (08:54→16:25)
[2016-10-20] MEDS: Calcium Carb/Vit D 500 mg/200 U Tab GT SCH ×2 (08:54→16:25)
--- NOTE | 2016-10-20 10:31 | Diagnostic Imaging Report ---
KUB abdominal film HISTORY: Pain There is a nonspecific gas pattern of nondilated bowel. No free intraperitoneal air. An inferior vena cava filter is seen. IMPRESSION: 1. Nonspecific bowel gas pattern with no acute radiographic abnormalities 2. Inferior vena cava filter
[2016-10-20] MEDS: Cefepime 1 GM in Sodium Chloride 0.9% 100 ML IV SCH ×2 (14:53→20:29)
[2016-10-20] MEDS: Dextrose 5% 1,000 ML IV SCH (16:23)
[2016-10-20] MEDS: Azithromycin 500 MG in Sodium Chloride 0.9% 250 ML IV SCH (16:39)
[2016-10-20] MEDS: Albuterol/Ipratropium Neb 3 ML AERS HHN SCH ×2 (19:19→22:52)
[2016-10-21] MEDS: Lactobacillus Rhamnosus 10 Billion CFU Capsule GT SCH ×2 (05:10→16:14)
[2016-10-21] MEDS: Cefepime 1 GM in Sodium Chloride 0.9% 100 ML IV SCH ×3 (05:12→21:26)
[2016-10-21 06:28] LABS: % EOSINOPHILS 0.2 % (0.0-5.0); % LYMPHOCYTES 30.4 % (20.0-50.0); % MONOCYTES 9.8 % (2.0-10.0); % NEUTROPHILS 59.6 % (40.0-80.0); HEMATOCRIT 32.7 % (39.0-49.0); HEMOGLOBIN 10.8 gm/dL (13.2-17.3); MEAN CELL VOLUME 86.6 fl (80-99); MEAN CORPUSCULAR HEMOGLOBIN 28.7 pg (26.0-30.0); MEAN CORPUSCULAR HGB CONC 33.1 pg (28.0-36.0); MEAN PLATELET VOLUME 10.3 fl; NEUTROPHILE ABSOLUTE 2.2 Th/cmm (1.8-8.0); PLATELET COUNT 76 Th/cmm (150-400); RED BLOOD COUNT 3.78 Mil/cmm (4.30-5.70); RED CELL DISTRIBUTION WIDTH 16.5 % (11.5-20.0)
[2016-10-21 06:41] LABS: ANION GAP 7.1 (7.0-16.0); BUN - UREA NITROGEN 18 mg/dL (7-25); CALCIUM SERUM 8.4 mg/dL (8.6-10.3); CARBON DIOXIDE 34.6 mEq/L (21.0-31.0); CHLORIDE 109 mEq/L (98-107); CREATININE - SERUM 0.6 mg/dL (0.7-1.3); GLUCOSE 97 mg/dL (70-105); SODIUM SERUM 148 mEq/L (136-145)
[2016-10-21 06:42] LABS: INR 2.21 (0.5-1.4); PROTHROMBIN TIME (TEST) 23.1 SECONDS (9.5-11.5)
[2016-10-21] MEDS: Dextrose 5% 1,000 ML IV SCH (06:47)
[2016-10-21] MEDS: metroNIDAZOLE 500mg/NS 100mL 500 MG/100 ML BAG IV SCH ×3 (06:48→21:33)
[2016-10-21 06:55] LABS: POTASSIUM SERUM 2.7 mEq/L (3.5-5.1)
[2016-10-21 07:08] LABS: WHITE BLOOD COUNT 3.7 Th/cmm (4.8-10.8)
[2016-10-21] MEDS: Albuterol/Ipratropium Neb 3 ML AERS HHN SCH ×5 (08:01→22:53)
[2016-10-21] MEDS: Pantoprazole 40 mg/Packet GT SCH (09:44)
[2016-10-21] MEDS: Lactulose 10 Gm/15 mL 30mL UDC GT SCH ×2 (09:44→16:12)
[2016-10-21] MEDS: Docusate Sodium 100 mg/10 mL UD GT SCH ×2 (09:44→16:12)
[2016-10-21] MEDS: Calcium Carb/Vit D 500 mg/200 U Tab GT SCH ×2 (09:45→16:14)
[2016-10-21] MEDS: Levothyroxine 0.05 Mg Tab GT SCH (09:45)
[2016-10-21] MEDS: Docusate Sodium/Senna Tab PO SCH ×2 (09:45→16:14)
[2016-10-21] MEDS: Ferrous Sulfate 300 MG/5 ML UDC GT SCH ×2 (10:01→16:12)
[2016-10-21] MEDS: KCL 20mEq/100mL Premix 20 MEQ/100 ML PIGGYBACK IV SCH ×2 (13:27→15:51)
[2016-10-21] MEDS: Vancomycin HCL 250 mg /10mL UDC GT SCH ×3 (13:30→21:36)
[2016-10-21] MEDS ORDERED: KCL 20mEq/100mL Premix 20 MEQ/100 ML PIGGYBACK IV ONE (15:50)
[2016-10-21] MEDS: Azithromycin 500 MG in Sodium Chloride 0.9% 250 ML IV SCH (18:27)
[2016-10-22] MEDS: Albuterol/Ipratropium Neb 3 ML AERS HHN SCH ×5 (04:00→19:32)
[2016-10-22] MEDS: Cefepime 1 GM in Sodium Chloride 0.9% 100 ML IV SCH ×3 (05:14→22:03)
[2016-10-22 07:38] LABS: BUN - UREA NITROGEN 14 mg/dL (7-25); CALCIUM SERUM 8.3 mg/dL (8.6-10.3); CARBON DIOXIDE 37.5 mEq/L (21.0-31.0); CHLORIDE 107 mEq/L (98-107); CREATININE - SERUM 0.5 mg/dL (0.7-1.3); GLUCOSE 95 mg/dL (70-105); POTASSIUM SERUM 3.5 mEq/L (3.5-5.1); SODIUM SERUM 146 mEq/L (136-145)
[2016-10-22] MEDS: Dextrose 5% 1,000 ML IV SCH ×2 (09:30→18:00)
[2016-10-22] MEDS: Lactulose 10 Gm/15 mL 30mL UDC GT SCH ×2 (09:41→17:58)
[2016-10-22] MEDS: Docusate Sodium 100 mg/10 mL UD GT SCH ×2 (09:42→17:59)
[2016-10-22] MEDS: Vancomycin HCL 250 mg /10mL UDC GT SCH ×3 (09:42→17:58)
[2016-10-22] MEDS: Ferrous Sulfate 300 MG/5 ML UDC GT SCH ×2 (09:42→17:59)
[2016-10-22] MEDS: Levothyroxine 0.05 Mg Tab GT SCH (09:42)
[2016-10-22] MEDS: Calcium Carb/Vit D 500 mg/200 U Tab GT SCH ×2 (09:44→17:59)
[2016-10-22] MEDS: Pantoprazole 40 mg/Packet GT SCH (09:44)
[2016-10-22] MEDS: Docusate Sodium/Senna Tab PO SCH ×2 (09:44→17:59)
[2016-10-22] MEDS: metroNIDAZOLE 500mg/NS 100mL 500 MG/100 ML BAG IV SCH ×3 (09:45→23:14)
[2016-10-22] MEDS: Lactobacillus Rhamnosus 10 Billion CFU Capsule GT SCH ×2 (09:46→17:59)
--- NOTE | 2016-10-22 10:57 | Diagnostic Imaging Report ---
Portable chest x-ray HISTORY: Shortness of breath Compared with prior exam of October 19, 2016, the heart size remains generous. Suggestion of faint infiltrate noted in the right lower lobe. Pneumonia cannot be excluded. Clinical correlation is needed. IMPRESSION: 1. Suggestion of faint infiltrate right lower lobe. Pneumonia cannot be excluded. Clinical correlation is needed.
[2016-10-22] MEDS ORDERED: Diatrizoate Meglumine/Diatri 30 mL Sol PO ONE (12:23)
[2016-10-22] MEDS: Azithromycin 500 MG in Sodium Chloride 0.9% 250 ML IV SCH (17:21)
[2016-10-22] MEDS: Budesonide 0.5 Mg/2 mL Ud HHN SCH (19:32)
[2016-10-23] MEDS: Albuterol/Ipratropium Neb 3 ML AERS HHN SCH ×7 (00:25→22:57)
[2016-10-23] MEDS: Promethazine DM 6.25/15mg-5mL 5 ML SYR GT PRN (02:58)
[2016-10-23] MEDS: Cefepime 1 GM in Sodium Chloride 0.9% 100 ML IV SCH ×3 (04:02→22:24)
[2016-10-23] MEDS: metroNIDAZOLE 500mg/NS 100mL 500 MG/100 ML BAG IV SCH ×3 (05:03→22:25)
[2016-10-23] MEDS: Lactobacillus Rhamnosus 10 Billion CFU Capsule GT SCH ×2 (05:17→17:45)
[2016-10-23 06:00] LABS: % BASOPHILS 0.1 % (0.0-2.0); % EOSINOPHILS 0.4 % (0.0-5.0); % LYMPHOCYTES 11.6 % (20.0-50.0); % MONOCYTES 4.6 % (2.0-10.0); % NEUTROPHILS 83.3 % (40.0-80.0); HEMATOCRIT 30.7 % (39.0-49.0); HEMOGLOBIN 10.2 gm/dL (13.2-17.3); MEAN CELL VOLUME 84.6 fl (80-99); MEAN CORPUSCULAR HEMOGLOBIN 28.1 pg (26.0-30.0); MEAN CORPUSCULAR HGB CONC 33.3 pg (28.0-36.0); MEAN PLATELET VOLUME 9.6 fl; NEUTROPHILE ABSOLUTE 4.6 Th/cmm (1.8-8.0); PLATELET COUNT 87 Th/cmm (150-400); RED BLOOD COUNT 3.63 Mil/cmm (4.30-5.70); RED CELL DISTRIBUTION WIDTH 15.8 % (11.5-20.0)
[2016-10-23 06:08] LABS: INR 2.84 (0.5-1.4); WHITE BLOOD COUNT 5.4 Th/cmm (4.8-10.8)
[2016-10-23 06:18] LABS: ANION GAP 6.4 (7.0-16.0); BUN - UREA NITROGEN 14 mg/dL (7-25); BUN/CREATININE RATIO 23.3; CALCIUM SERUM 8.1 mg/dL (8.6-10.3); CARBON DIOXIDE 33.6 mEq/L (21.0-31.0); CHLORIDE 103 mEq/L (98-107); CREATININE - SERUM 0.6 mg/dL (0.7-1.3); GLUCOSE 115 mg/dL (70-105); SODIUM SERUM 140 mEq/L (136-145)
[2016-10-23] MEDS: Budesonide 0.5 Mg/2 mL Ud HHN SCH ×2 (08:24→19:54)
[2016-10-23] MEDS: Vancomycin HCL 250 mg /10mL UDC GT SCH ×5 (09:43→22:24)
[2016-10-23] MEDS: Docusate Sodium 100 mg/10 mL UD GT SCH ×2 (09:44→17:45)
[2016-10-23] MEDS: Calcium Carb/Vit D 500 mg/200 U Tab GT SCH ×2 (09:44→17:45)
[2016-10-23] MEDS: Ferrous Sulfate 300 MG/5 ML UDC GT SCH ×2 (09:45→17:46)
[2016-10-23] MEDS: Docusate Sodium/Senna Tab PO SCH ×2 (09:45→17:46)
[2016-10-23] MEDS: Lactulose 10 Gm/15 mL 30mL UDC GT SCH ×2 (09:46→17:46)
[2016-10-23] MEDS: Pantoprazole 40 mg/Packet GT SCH (09:46)
[2016-10-23] MEDS: Levothyroxine 0.05 Mg Tab GT SCH (09:46)
[2016-10-23] MEDS: KCL 20mEq/100mL Premix 20 MEQ/100 ML PIGGYBACK IV SCH (13:17)
[2016-10-23] MEDS ORDERED: Diatrizoate Meglumine/Diatri 30 mL Sol ONE (20:28)
[2016-10-24] MEDS: Albuterol/Ipratropium Neb 3 ML AERS HHN SCH ×6 (03:14→22:17)
[2016-10-24] MEDS: Lactobacillus Rhamnosus 10 Billion CFU Capsule GT SCH ×2 (03:30→18:26)
[2016-10-24] MEDS: metroNIDAZOLE 500mg/NS 100mL 500 MG/100 ML BAG IV SCH (05:22)
[2016-10-24] MEDS: Cefepime 1 GM in Sodium Chloride 0.9% 100 ML IV SCH ×2 (05:22→13:15)
[2016-10-24 07:23] LABS: % EOSINOPHILS 0.5 % (0.0-5.0); % LYMPHOCYTES 27.8 % (20.0-50.0); % MONOCYTES 5.1 % (2.0-10.0); % NEUTROPHILS 66.6 % (40.0-80.0); HEMATOCRIT 29.4 % (39.0-49.0); MEAN CORPUSCULAR HEMOGLOBIN 28.7 pg (26.0-30.0); MEAN CORPUSCULAR HGB CONC 34.1 pg (28.0-36.0); MEAN PLATELET VOLUME 9.5 fl; NEUTROPHILE ABSOLUTE 2.6 Th/cmm (1.8-8.0); PLATELET COUNT 89 Th/cmm (150-400); RED CELL DISTRIBUTION WIDTH 15.8 % (11.5-20.0)
[2016-10-24 07:37] LABS: BUN - UREA NITROGEN 14 mg/dL (7-25); BUN/CREATININE RATIO 23.3; CALCIUM SERUM 8.2 mg/dL (8.6-10.3); CARBON DIOXIDE 35.1 mEq/L (21.0-31.0); CHLORIDE 101 mEq/L (98-107); CREATININE - SERUM 0.6 mg/dL (0.7-1.3); GLUCOSE 95 mg/dL (70-105); POTASSIUM SERUM 3.1 mEq/L (3.5-5.1); SODIUM SERUM 139 mEq/L (136-145)
[2016-10-24 07:42] LABS: INR 1.84 (0.5-1.4); PROTHROMBIN TIME (TEST) 18.9 SECONDS (9.5-11.5)
[2016-10-24 07:43] LABS: WHITE BLOOD COUNT 3.9 Th/cmm (4.8-10.8)
[2016-10-24] MEDS: Budesonide 0.5 Mg/2 mL Ud HHN SCH ×2 (08:42→19:07)
[2016-10-24] MEDS: Docusate Sodium/Senna Tab PO SCH ×2 (08:51→18:35)
[2016-10-24] MEDS: Lactulose 10 Gm/15 mL 30mL UDC GT SCH ×2 (08:52→18:35)
[2016-10-24] MEDS: Pantoprazole 40 mg/Packet GT SCH (08:52)
[2016-10-24] MEDS: Levothyroxine 0.05 Mg Tab GT SCH (08:52)
[2016-10-24] MEDS: Ferrous Sulfate 300 MG/5 ML UDC GT SCH ×2 (08:52→18:26)
[2016-10-24] MEDS: Calcium Carb/Vit D 500 mg/200 U Tab GT SCH ×2 (08:53→18:26)
[2016-10-24] MEDS: Docusate Sodium 100 mg/10 mL UD GT SCH ×2 (08:53→18:35)
[2016-10-24] MEDS: Vancomycin HCL 250 mg /10mL UDC GT SCH ×3 (09:00→18:32)
--- NOTE | 2016-10-24 09:54 | Diagnostic Imaging Report ---
CHEST X-RAY: AP view INDICATION: Shortness of breath COMPARISON: 10/22/2016 FINDINGS: Mild congestive changes are seen with improving right basal infiltrates. Small right effusion is noted. Mild cardiomegaly is noted. IMPRESSION: Mild congestive changes with improving right basal infiltrates. Small right effusion.
--- NOTE | 2016-10-24 13:16 | Diagnostic Imaging Report ---
CT abdomen and pelvis without intravenous contrast Indication: Abdominal distention, G-tube placement Comparison: CT abdomen and pelvis on 12/25/2014, Technique: Axial images were obtained from the lung bases to the bilateral proximal femurs without IV contrast. Coronal reconstructions were made. total DLP: 329, CTDI6.6 FINDINGS: Bilateral pleural effusions are seen with bibasal infiltrates and consolidation. Assessment of the solid organs is limited due to lack of IV contrast. Exam is also limited due to streak artifact from patient's oral contrast and from motion. No discrete focal hepatic or splenic lesions. There is poor visualization of the pancreas. No obvious focal adrenal lesions. No evidence of hydronephrosis or nephrolithiasis. Streak artifact from patient's right hip arthroplasty also limits evaluation of the pelvis. A percutaneous gastric feeding tube is noted. Multiple distended loops of small large bowel are seen without evidence of obstruction. Oral contrast is seen extending to the rectum. No evidence of extravasation of contrast. The appendix is not visualized. Trace free fluid is seen in the right lower quadrant. No free air. IVC filter is seen at the L2/L3 level. Anasarca is noted. IMPRESSION: G-tube seen within the stomach. Oral contrast is seen within distended stomach and gaseous distended small and large bowel loops without evidence of obstruction. Oral Contrast was seen to the level of the rectum. No evidence of extravasation of contrast. Trace free fluid in the right lower quadrant, not. Appendix was not visualized. Bilateral pleural effusions and bibasal infiltrates and consolidative changes Anasarca. Evidence of total right hip arthroplasty. IVC filter.
--- NOTE | 2016-10-24 18:34 | General Progress Note ---
Subjective - Review of Systems Service Date: 10/24/16 Subjective: PATIENT SEEN AND EXAMINED EARLIER. DELAYED NOTE ENTRY. EVENTS NOTED. CT NOTED. TUBE FEEDS RESUMED. Objective - Results Result Diagrams: 10/24/16 06:55 10/24/16 06:55 Recent Labs: Laboratory Last Values WBC 3.9 Th/cmm (4.8-10.8) L D 10/24/16 06:55 RBC 3.50 Mil/cmm (4.30-5.70) L 10/24/16 06:55 Hgb 10.0 gm/dL (13.2-17.3) L 10/24/16 06:55 Hct 29.4 % (39.0-49.0) L 10/24/16 06:55 MCV 84.0 fl (80-99) 10/24/16 06:55 MCH 28.7 pg (26.0-30.0) 10/24/16 06:55 MCHC Differential 34.1 pg (28.0-36.0) 10/24/16 06:55 RDW 15.8 % (11.5-20.0) 10/24/16 06:55 Plt Count 89 Th/cmm (150-400) L 10/24/16 06:55 MPV 9.5 fl 10/24/16 06:55 Neutrophils % 66.6 % (40.0-80.0) 10/24/16 06:55 Band Neutrophils % 17 % (0-10) H 10/19/16 06:15 Lymphocytes % 27.8 % (20.0-50.0) 10/24/16 06:55 Monocytes % 5.1 % (2.0-10.0) 10/24/16 06:55 Eosinophils % 0.5 % (0.0-5.0) 10/24/16 06:55 Basophils % 0.0 % (0.0-2.0) 10/24/16 06:55 Neutrophils (Manual) 69 % (40-80) 10/19/16 06:15 Lymphocytes 9 % (20-50) L 10/19/16 06:15 Monocytes 3 % (2-10) 10/19/16 06:15 Atypical Lymphocytes 2 % 10/19/16 06:15 Platelet Estimate DECREASED PLATELETS (NORMAL) 10/19/16 06:15 Platelet Morphology GIANT PLATELETS SEEN (NORMAL) 10/19/16 06:15 RBC Morph Micro Appear NORMAL (NORMAL) 10/19/16 06:15 PT 18.9 SECONDS (9.5-11.5) H 10/24/16 06:55 INR 1.84 (0.5-1.4) H 10/24/16 06:55 Sodium 139 mEq/L (136-145) 10/24/16 06:55 Potassium 3.1 mEq/L (3.5-5.1) L 10/24/16 06:55 Chloride 101 mEq/L (98-107) 10/24/16 06:55 Carbon Dioxide 35.1 mEq/L (21.0-31.0) H 10/24/16 06:55 Anion Gap 6.0 (7.0-16.0) L 10/24/16 06:55 BUN 14 mg/dL (7-25) 10/24/16 06:55 Creatinine 0.6 mg/dL (0.7-1.3) L 10/24/16 06:55 Est GFR ( Amer) > 60.0 ml/min (>90) 10/24/16 06:55 Est GFR (Non-Af Amer) > 60.0 ml/min 10/24/16 06:55 BUN/Creatinine Ratio 23.3 10/24/16 06:55 Glucose 95 mg/dL (70-105) 10/24/16 06:55 Hemoglobin A1c % 5.6 % (4.0-6.0) 10/19/16 06:15 Whole Bld Lactic Acid 1.22 mmol/L (0.60-2.00) 10/16/16 12:50 Calcium 8.2 mg/dL (8.6-10.3) L 10/24/16 06:55 Magnesium 1.8 mg/dL (1.9-2.7) L 10/23/16 05:45 Total Bilirubin 0.2 mg/dL (0.3-1.0) L 10/16/16 12:50 AST 32 U/L (13-39) 10/16/16 12:50 ALT 26 U/L (7-52) 10/16/16 12:50 Alkaline Phosphatase 90 U/L (34-104) 10/16/16 12:50 B-Natriuretic Peptide 332.0 pg/mL (5.0-100.0) H 10/17/16 06:33 Total Protein 6.9 gm/dL (6.0-8.3) 10/16/16 12:50 Albumin 3.3 gm/dL (4.2-5.5) L 10/16/16 12:50 Globulin 3.6 gm/dL 10/16/16 12:50 Albumin/Globulin Ratio 0.9 (1.0-1.8) L 10/16/16 12:50 Urine Source [place] 10/16/16 12:40 Urine Color YELLOW 10/16/16 12:40 Urine Clarity SL. CLOUDY (CLEAR) 10/16/16 12:40 Urine pH 7.5 10/16/16 12:40 Ur Specific [place] 1.020 (1.005-1.030) 10/16/16 12:40 Urine Protein NEGATIVE mg/dL (NEGATIVE) 10/16/16 12:40 Urine Glucose (UA) NEGATIVE mg/dL (NEGATIVE) 10/16/16 12:40 Urine Ketones NEGATIVE mg/dL (NEGATIVE) 10/16/16 12:40 Urine Blood NEGATIVE (NEGATIVE) 10/16/16 12:40 Urine Nitrate NEGATIVE (NEGATIVE) 10/16/16 12:40 Urine Bilirubin NEGATIVE (NEGATIVE) 10/16/16 12:40 Urine Urobilinogen 0.2 E.U./dL (0.2 - 1.0) 10/16/16 12:40 Ur Leukocyte Esterase NEGATIVE (NEGATIVE) 10/16/16 12:40 Urine RBC 0-1 /hpf (0-5) 10/16/16 12:40 Urine WBC 2-5 /hpf (0-5) H 10/16/16 12:40 Ur Epithelial Cells FEW /lpf (FEW) 10/16/16 12:40 Urine Bacteria NONE SEEN /hpf (NONE SEEN) 10/16/16 12:40 - Physical Exam Vitals and I&O: Vital Signs Temp 97.2 F 10/24/16 16:00 Pulse 65 10/24/16 16:20 Resp 20 10/24/16 16:20 BP 155/91 10/24/16 16:00 Pulse Ox 94 10/24/16 16:20 Intake & Output 10/23/16 10/24/16 10/24/16 18:59 06:59 18:59 Intake Total 500 300 Balance 500 300 Intake: Intake, IV Amount 200 300 Cefepime 1 gm In Sodium 100 200 Chloride 0.9% 100 ml @ 100 mls/hr IV Q8HR [facility] Rx #:[id number] metroNIDAZOLE 500mg/NS 100 100 100mL 500 mg In 100 ml @ 100 mls/hr IV Q8HR [facility] Rx #:[id number] Oral 0 Other 300 Other: Stool Characteristics Soft Liquid Brown Green Active Medications: Current Medications Acetaminophen (Tylenol 650mg/20.3ml Suspension) 650 mg GT Q4HR PRN PRN Reason: Pain Or Fever >100 Stop: 12/15/16 16:00 Last Admin: 10/18/16 17:10 Dose: 650 mg Acetylcysteine (Mucomyst 20%) 2 ml PO Q4HRT [facility] Stop: 12/19/16 18:59 Last Admin: 10/24/16 16:20 Dose: 2 ml Albuterol/Ipratropium (Duoneb Neb) 3 ml HHN Q4HRT [facility] Stop: 12/19/16 18:59 Last Admin: 10/24/16 16:20 Dose: 3 ml Amlodipine Besylate (Norvasc) 10 mg GT DAILY [facility] Stop: 12/16/16 08:59 Last Admin: 10/24/16 08:46 Dose: Not Given Benzonatate (Tessalon) 100 mg PO TID PRN PRN Reason: Cough Stop: 12/16/16 09:30 Bisacodyl (Dulcolax 10 Mg Supp) 10 mg RC Q96H PRN PRN Reason: Constipation Stop: 12/15/16 16:59 Budesonide (Pulmicort) 0.5 mg HHN BIDRT [facility] Stop: 12/21/16 18:59 Last Admin: 10/24/16 08:42 Dose: 0.5 mg Calcium/Vitamin D (Oscal W/Vitamin D) 1 tab GT BID [facility] Stop: 12/15/16 16:59 Last Admin: 10/24/16 18:26 Dose: 1 tab Clonidine HCl (Catapres) 0.1 mg GT Q6HR PRN PRN Reason: HYPERTENSION SBP>160 OR DBP>90 Stop: 12/15/16 16:00 Docusate Sodium (Colace) 100 mg GT BID [facility] Stop: 12/15/16 16:59 Last Admin: 10/24/16 08:53 Dose: Not Given Ferrous Sulfate (Iron) 220 mg GT BID [facility] Stop: 12/15/16 16:59 Last Admin: 10/24/16 18:26 Dose: 220 mg Cefepime HCl 1 gm/ Sodium (Chloride) 100 mls @ 100 mls/hr IV Q8HR [facility] Stop: 12/16/16 12:59 Last Admin: 10/24/16 13:15 Dose: 100 mls/hr Potassium Chloride 10 meq/ (Dextrose) 1,005 mls @ 60 mls/hr IV .[id number] [facility] Stop: 12/23/16 09:25 Last Admin: 10/24/16 10:29 Dose: 60 mls/hr Lactobacillus Rhamnosus (Culturelle) 1 each GT Q12H [facility] Stop: 12/15/16 16:14 Last Admin: 10/24/16 18:26 Dose: 1 each Lactulose (Cephulac) 15 gm GT BID [facility] Stop: 12/17/16 09:44 Last Admin: 10/24/16 08:52 Dose: Not Given Levothyroxine Sodium (Synthroid) 0.05 mg GT DAILY [facility] Stop: 12/16/16 08:59 Last Admin: 10/24/16 08:52 Dose: Not Given Lorazepam (Ativan) 1 mg IVP Q4HR PRN; Protocol PRN Reason: Agitation Stop: 12/22/16 21:46 Last Admin: 10/24/16 12:38 Dose: 1 mg Magnesium Hydroxide (Milk Of Magnesia) 30 ml GT Q72H PRN PRN Reason: Constipation Stop: 12/15/16 16:00 Last Admin: 10/21/16 16:12 Dose: 30 ml Magnesium Oxide (Mag-Oxide) 400 mg GT DAILY [facility] Stop: 12/16/16 08:59 Last Admin: 10/24/16 08:52 Dose: Not Given Metoclopramide HCl (Reglan) 10 mg PO ACHS [facility] Stop: 12/23/16 11:29 Last Admin: 10/24/16 18:27 Dose: 10 mg Ondansetron HCl (Zofran) 4 mg IV Q4HR PRN PRN Reason: Nausea / Vomiting Stop: 12/20/16 09:49 Pantoprazole Sodium (Protonix) 10 mg GT DAILY [facility] Stop: 12/16/16 08:59 Last Admin: 10/24/16 08:52 Dose: Not Given Promethazine HCl/Dextromethorphan (Phenergan Dm 6.25/15mg-5 Ml) 5 ml GT Q4HR PRN PRN Reason: Cough Stop: 12/15/16 16:17 Last Admin: 10/23/16 02:58 Dose: 5 ml Sennosides (Senna Plus 50 Mg-8.6 Mg) 1 tab PO BID [facility] Stop: 12/17/16 09:44 Last Admin: 10/24/16 08:51 Dose: Not Given Sodium Phosphate (Fleet Enema) 135 ml RC Q96H PRN PRN Reason: Constipation Stop: 12/15/16 16:00 Last Admin: 10/21/16 16:44 Dose: 135 ml Valproate Sodium (Depakene) 250 mg GT BID [facility] Stop: 12/15/16 16:59 Last Admin: 10/24/16 18:26 Dose: 250 mg Vancomycin HCl (Vancomycin Oral) 250 mg GT QID [facility] Stop: 12/20/16 12:59 Last Admin: 10/24/16 13:00 Dose: Not Given Warfarin Sodium (Coumadin Per Pharmacy) 1 ea MC PRN PRN; Protocol PRN Reason: RX MONITORING Stop: 12/21/16 15:45 General: No acute distress HEENT: Atraumatic Neck: Supple Cardiovascular: Regular rate Lungs: Clear to auscultation, Other (OCC RHONCHI) Abdomen: Bowel sounds, Soft, Distended (MILD), Other (INTACT GT) - Procedures Procedures: Procedures Procedure Code Date CHANGE GASTROSTOMY TUBE 57160 03/13/15 REPLACE GASTROSTOMY TUBE 97.02 03/13/15 REPOSITION GASTROSTOMY TUBE 35677 12/25/14 Assessment/Plan - Problem List Patient Problems: All Active Problems Active autistic disorder (Acute) Attention to gastrostomy (Acute) CONGESTION (Acute 08/05/15) Epilepsy (Acute) G40.909 Fever (Acute) R50.9 Fever (Acute) R50.9 Fever determined by examination (Acute) R50.9 G-TUBE OUT (Acute) Mechanical complication of gastrostomy (Acute) K94.23 Severe mental retardation (Acute) F72 - Assessment Assessment: 1. ABD DISTENSION - INITIAL FECAL IMPACTION, NOW RESOLVED WITH BOWEL PREP; ALSO C DIFF COLITIS. CT SHOWED DILATED SB/COLONIC LOOPS WITHOUT OBVIOUS OBSTRUCTION. 2. DYSPHAGIA S/P GT. 3. MR. 4. ANEMIA. - Plan Plan: 1. GT FEEDS RESUMED. 2. LAXATIVES TO BE CONTINUED. 3. VANCO PER GT. 4. PROBIOTICS. 5. GI LEIGH STABLE IN AM IF TOLERATED GT FEEDS.
--- NOTE | 2016-10-24 21:03 | Discharge Summary ---
ADMITTING DIAGNOSES: 1. Acute respiratory insufficiency and acute respiratory infection, likely bronchitis versus pneumonia/aspiration pneumonia. 1. Fever, rule out sepsis. 2. History of chronic obstructive pulmonary disease with exacerbation. 3. R/O aspiration pna SECONDARY DIAGNOSES: History of chronic obstructive pulmonary disease, history of hypertension, history of hypothyroidism and history of chronic anemia, history of severe intellectual disability, history of autism, history of lower extremity deep venous thrombosis and history of complicated pneumonias. Chronic anemia. DISCHARGE DIAGNOSES: 1. Right lower lobe pneumonia and respiratory insufficiency with improvement. 2. Clostridium difficile colitis-clinically stable. 3. Constipation-improved. 4. Azotemia-improved. 5. Thrombocytopenia-stable. 6. Constipation/fecal impaction-resolved. CONSULTANTS: Dr. Macdonald, Pulmonary and Dr. Davila, GI. MAJOR PROCEDURES AND SIGNIFICANT FINDINGS: There was a KUB done on admission showing copious amount of stool with distal fecal impaction and gas filled loops of bowel. A repeat KUB shows nonspecific bowel gas pattern with no acute radiographic abnormalities. There is an inferior vena cava filter and there is a CT of the abdomen and pelvis with official results pending. DISCHARGE MEDICATIONS: Tylenol 650 per G-tube q.4 hours p.r.n. for pain, Mycomyst 2 mL q.4h., DuoNeb q.4h., amlodipine 10 mg every day, Tessalon drops 100 mg t.i.d., Dulcolax 10 mg q.96h. p.r.n. for severe constipation, Pulmicort 0.5 b.i.d., calcium with vitamin D 1 tab b.i.d.,cefepime 1 gram q.8h., clonidine p.r.n. for SBP greater than 160, docusate sodium 100 mg b.i.d., iron sulfate 220 mg b.i.d., lactulose 15 g b.i.d., levothyroxine 50 mcg every day, lorazepam 1 mg q.4. p.r.n. for agitation, milk of magnesia 30 mL q.72h. p.r.n. for constipation, magnesium oxide 400 mg every day, Reglan 10 mg q.a.c. and at bedtime, Zofran 4 mg IV push q.4h. p.r.n. for nausea, vomiting, Protonix 10 mg daily via G-tube, Phenergan DM b.i.d. p.r.n. for cough, senna 1 tab qday, Fleet enema 135 mL per rectum q.96h. for severe constipation, Depakene 250 b.i.d., vancomycin 250 G-tube q.i.d., Coumadin per pharmacy and Flagyl 500 mg IV q.8h. BRIEF HOSPITAL COURSE: This is a recurrent admission for this 61-year-old white gentleman, who has a history of complicated pneumonias/aspiration pneumonia, history of dysphagia with a placement of PEG. Also hx of chronic bronchitis, hypertension, hypothyroidism and autism, who was brought into the ER with chest congestion and cough as well as emesis. Initially, his white count was noted to be 8.7 with 83% neutrophils and x-ray did show increased interstitial lung markings. He was admitted to telemetry and placed on antibiotics including Flagyl given his history of aspiration. A KUB was done with the above-mentioned results and therefore, the patient was placed on multiple laxatives with improvement of his constipation. Given his recurrency of aspiration pneumonia and possible aspiration, GI eval was asked for. The patient had been receiving bolus feedings, but they were changed per dietary recommendations-it was changed to continuous feed to try to avoid coughing spells. The patient has been doing well with occasional spikes in temperature and occasional agitation spells, but his objective data has remained stable. His initial sodium was 152, which has improved to a level of 139 and his white count has remained stable. A followup x-ray did show a right lower lobe infiltrate, which has not gotten worse. He is currently on cefepime and Flagyl for the pneumonia. Stool studies did confirm a C. diff. for which he is getting vancomycin via G-tube. CONDITION ON DISCHARGE: Stable. DISPOSITION: The patient will be transferred to [facility] for further IV antibiotic and pulmonary rehabilitation. A CT of the abdomen and pelvis done earlier today, will be followed prior to his discharge. JOB# [id number] MARGIE
[2016-10-25] MEDS: Cefepime 1 GM in Sodium Chloride 0.9% 100 ML IV SCH ×3 (01:28→13:00)
[2016-10-25] MEDS: Vancomycin HCL 250 mg /10mL UDC GT SCH ×5 (01:30→22:16)
[2016-10-25] MEDS: Albuterol/Ipratropium Neb 3 ML AERS HHN SCH ×6 (02:40→23:20)
[2016-10-25 06:42] LABS: % EOSINOPHILS 1.4 % (0.0-5.0); % LYMPHOCYTES 21.5 % (20.0-50.0); % MONOCYTES 5.1 % (2.0-10.0); HEMATOCRIT 30.1 % (39.0-49.0); HEMOGLOBIN 10.2 gm/dL (13.2-17.3); MEAN CELL VOLUME 83.9 fl (80-99); MEAN CORPUSCULAR HEMOGLOBIN 28.5 pg (26.0-30.0); MEAN CORPUSCULAR HGB CONC 33.9 pg (28.0-36.0); MEAN PLATELET VOLUME 9.8 fl; NEUTROPHILE ABSOLUTE 3.5 Th/cmm (1.8-8.0); PLATELET COUNT 106 Th/cmm (150-400); RED BLOOD COUNT 3.59 Mil/cmm (4.30-5.70); RED CELL DISTRIBUTION WIDTH 15.9 % (11.5-20.0)
[2016-10-25 07:13] LABS: ANION GAP 7.1 (7.0-16.0); BUN - UREA NITROGEN 15 mg/dL (7-25); CALCIUM SERUM 8.5 mg/dL (8.6-10.3); CARBON DIOXIDE 34.9 mEq/L (21.0-31.0); CHLORIDE 104 mEq/L (98-107); CREATININE - SERUM 0.6 mg/dL (0.7-1.3); GLUCOSE 97 mg/dL (70-105); SODIUM SERUM 143 mEq/L (136-145)
[2016-10-25] MEDS: Budesonide 0.5 Mg/2 mL Ud HHN SCH ×2 (07:34→19:26)
[2016-10-25] MEDS: Lactobacillus Rhamnosus 10 Billion CFU Capsule GT SCH ×2 (07:44→17:23)
[2016-10-25 08:05] LABS: INR 1.58 (0.5-1.4); PROTHROMBIN TIME (TEST) 16.1 SECONDS (9.5-11.5)
[2016-10-25] MEDS ORDERED: KCL 20mEq/100mL Premix 20 MEQ/100 ML PIGGYBACK IV SCH (09:00)
[2016-10-25] MEDS: Docusate Sodium 100 mg/10 mL UD GT SCH ×2 (09:05→17:24)
[2016-10-25] MEDS: Ferrous Sulfate 300 MG/5 ML UDC GT SCH ×2 (09:05→17:23)
[2016-10-25] MEDS: Lactulose 10 Gm/15 mL 30mL UDC GT SCH ×2 (09:05→17:25)
[2016-10-25] MEDS: Calcium Carb/Vit D 500 mg/200 U Tab GT SCH ×2 (09:06→17:23)
[2016-10-25] MEDS: Levothyroxine 0.05 Mg Tab GT SCH (09:06)
[2016-10-25] MEDS: Docusate Sodium/Senna Tab PO SCH ×2 (09:06→17:25)
[2016-10-25] MEDS: Pantoprazole 40 mg/Packet GT SCH (09:06)
--- NOTE | 2016-10-25 12:48 | General Progress Note ---
Subjective - Review of Systems Service Date: 10/25/16 Subjective: EVENTS NOTED. TUBE FEEDS TOLERATED. Objective - Results Result Diagrams: 10/25/16 05:39 10/25/16 05:39 Recent Labs: Laboratory Last Values WBC 5.0 Th/cmm (4.8-10.8) D 10/25/16 05:39 RBC 3.59 Mil/cmm (4.30-5.70) L 10/25/16 05:39 Hgb 10.2 gm/dL (13.2-17.3) L 10/25/16 05:39 Hct 30.1 % (39.0-49.0) L 10/25/16 05:39 MCV 83.9 fl (80-99) 10/25/16 05:39 MCH 28.5 pg (26.0-30.0) 10/25/16 05:39 MCHC Differential 33.9 pg (28.0-36.0) 10/25/16 05:39 RDW 15.9 % (11.5-20.0) 10/25/16 05:39 Plt Count 106 Th/cmm (150-400) L 10/25/16 05:39 MPV 9.8 fl 10/25/16 05:39 Neutrophils % 72.0 % (40.0-80.0) 10/25/16 05:39 Band Neutrophils % 17 % (0-10) H 10/19/16 06:15 Lymphocytes % 21.5 % (20.0-50.0) 10/25/16 05:39 Monocytes % 5.1 % (2.0-10.0) 10/25/16 05:39 Eosinophils % 1.4 % (0.0-5.0) 10/25/16 05:39 Basophils % 0.0 % (0.0-2.0) 10/25/16 05:39 Neutrophils (Manual) 69 % (40-80) 10/19/16 06:15 Lymphocytes 9 % (20-50) L 10/19/16 06:15 Monocytes 3 % (2-10) 10/19/16 06:15 Atypical Lymphocytes 2 % 10/19/16 06:15 Platelet Estimate DECREASED PLATELETS (NORMAL) 10/19/16 06:15 Platelet Morphology GIANT PLATELETS SEEN (NORMAL) 10/19/16 06:15 RBC Morph Micro Appear NORMAL (NORMAL) 10/19/16 06:15 PT 16.1 SECONDS (9.5-11.5) H 10/25/16 05:39 INR 1.58 (0.5-1.4) H 10/25/16 05:39 Sodium 143 mEq/L (136-145) 10/25/16 05:39 Potassium 3.0 mEq/L (3.5-5.1) L 10/25/16 05:39 Chloride 104 mEq/L (98-107) 10/25/16 05:39 Carbon Dioxide 34.9 mEq/L (21.0-31.0) H 10/25/16 05:39 Anion Gap 7.1 (7.0-16.0) 10/25/16 05:39 BUN 15 mg/dL (7-25) 10/25/16 05:39 Creatinine 0.6 mg/dL (0.7-1.3) L 10/25/16 05:39 Est GFR ( Amer) > 60.0 ml/min (>90) 10/25/16 05:39 Est GFR (Non-Af Amer) > 60.0 ml/min 10/25/16 05:39 BUN/Creatinine Ratio 25.0 10/25/16 05:39 Glucose 97 mg/dL (70-105) 10/25/16 05:39 Hemoglobin A1c % 5.6 % (4.0-6.0) 10/19/16 06:15 Whole Bld Lactic Acid 1.22 mmol/L (0.60-2.00) 10/16/16 12:50 Calcium 8.5 mg/dL (8.6-10.3) L 10/25/16 05:39 Magnesium 1.8 mg/dL (1.9-2.7) L 10/23/16 05:45 Total Bilirubin 0.2 mg/dL (0.3-1.0) L 10/16/16 12:50 AST 32 U/L (13-39) 10/16/16 12:50 ALT 26 U/L (7-52) 10/16/16 12:50 Alkaline Phosphatase 90 U/L (34-104) 10/16/16 12:50 B-Natriuretic Peptide 332.0 pg/mL (5.0-100.0) H 10/17/16 06:33 Total Protein 6.9 gm/dL (6.0-8.3) 10/16/16 12:50 Albumin 3.3 gm/dL (4.2-5.5) L 10/16/16 12:50 Globulin 3.6 gm/dL 10/16/16 12:50 Albumin/Globulin Ratio 0.9 (1.0-1.8) L 10/16/16 12:50 Urine Source [place] 10/16/16 12:40 Urine Color YELLOW 10/16/16 12:40 Urine Clarity SL. CLOUDY (CLEAR) 10/16/16 12:40 Urine pH 7.5 10/16/16 12:40 Ur Specific [place] 1.020 (1.005-1.030) 10/16/16 12:40 Urine Protein NEGATIVE mg/dL (NEGATIVE) 10/16/16 12:40 Urine Glucose (UA) NEGATIVE mg/dL (NEGATIVE) 10/16/16 12:40 Urine Ketones NEGATIVE mg/dL (NEGATIVE) 10/16/16 12:40 Urine Blood NEGATIVE (NEGATIVE) 10/16/16 12:40 Urine Nitrate NEGATIVE (NEGATIVE) 10/16/16 12:40 Urine Bilirubin NEGATIVE (NEGATIVE) 10/16/16 12:40 Urine Urobilinogen 0.2 E.U./dL (0.2 - 1.0) 10/16/16 12:40 Ur Leukocyte Esterase NEGATIVE (NEGATIVE) 10/16/16 12:40 Urine RBC 0-1 /hpf (0-5) 10/16/16 12:40 Urine WBC 2-5 /hpf (0-5) H 10/16/16 12:40 Ur Epithelial Cells FEW /lpf (FEW) 10/16/16 12:40 Urine Bacteria NONE SEEN /hpf (NONE SEEN) 10/16/16 12:40 - Physical Exam Vitals and I&O: Vital Signs Temp 97.1 F 10/25/16 12:28 Pulse 63 10/25/16 12:28 Resp 18 10/25/16 12:28 BP 112/83 10/25/16 12:28 Pulse Ox 96 10/25/16 12:28 Intake & Output 10/24/16 10/25/16 10/25/16 18:59 06:59 18:59 Intake Total 400 Balance 400 Intake: Intake, IV Amount 100 Cefepime 1 gm In Sodium 100 Chloride 0.9% 100 ml @ 100 mls/hr IV Q8HR [facility] Rx #:[id number] Tube Feeding 300 Other: # Voids 4 # Bowel Movements 3 Stool Characteristics Liquid Green Active Medications: Current Medications Acetaminophen (Tylenol 650mg/20.3ml Suspension) 650 mg GT Q4HR PRN PRN Reason: Pain Or Fever >100 Stop: 12/15/16 16:00 Last Admin: 10/18/16 17:10 Dose: 650 mg Acetylcysteine (Mucomyst 20%) 2 ml PO Q4HRT [facility] Stop: 12/19/16 18:59 Last Admin: 10/25/16 11:13 Dose: 2 ml Albuterol/Ipratropium (Duoneb Neb) 3 ml HHN Q4HRT [facility] Stop: 12/19/16 18:59 Last Admin: 10/25/16 11:13 Dose: 3 ml Amlodipine Besylate (Norvasc) 10 mg GT DAILY [facility] Stop: 12/16/16 08:59 Last Admin: 10/25/16 09:06 Dose: 10 mg Benzonatate (Tessalon) 100 mg PO TID PRN PRN Reason: Cough Stop: 12/16/16 09:30 Bisacodyl (Dulcolax 10 Mg Supp) 10 mg RC Q96H PRN PRN Reason: Constipation Stop: 12/15/16 16:59 Budesonide (Pulmicort) 0.5 mg HHN BIDRT [facility] Stop: 12/21/16 18:59 Last Admin: 10/25/16 07:34 Dose: 0.5 mg Calcium/Vitamin D (Oscal W/Vitamin D) 1 tab GT BID [facility] Stop: 12/15/16 16:59 Last Admin: 10/25/16 09:06 Dose: 1 tab Clonidine HCl (Catapres) 0.1 mg GT Q6HR PRN PRN Reason: HYPERTENSION SBP>160 OR DBP>90 Stop: 12/15/16 16:00 Docusate Sodium (Colace) 100 mg GT BID [facility] Stop: 12/15/16 16:59 Last Admin: 10/25/16 09:05 Dose: 100 mg Ferrous Sulfate (Iron) 220 mg GT BID [facility] Stop: 12/15/16 16:59 Last Admin: 10/25/16 09:05 Dose: 220 mg Cefepime HCl 1 gm/ Sodium (Chloride) 100 mls @ 100 mls/hr IV Q8HR [facility] Stop: 12/16/16 12:59 Last Admin: 10/25/16 07:39 Dose: Not Given Potassium Chloride 10 meq/ (Dextrose) 1,005 mls @ 60 mls/hr IV .[id number] [facility] Stop: 12/23/16 09:25 Last Admin: 10/25/16 07:45 Dose: Not Given Potassium Chloride (Potassium Chloride) 20 meq in 100 mls @ 50 mls/hr IV Q2H [facility] Stop: 10/25/16 12:59 Lactobacillus Rhamnosus (Culturelle) 1 each GT Q12H [facility] Stop: 12/15/16 16:14 Last Admin: 10/25/16 07:44 Dose: 1 each Lactulose (Cephulac) 15 gm GT BID [facility] Stop: 12/17/16 09:44 Last Admin: 10/25/16 09:05 Dose: 15 gm Levothyroxine Sodium (Synthroid) 0.05 mg GT DAILY [facility] Stop: 12/16/16 08:59 Last Admin: 10/25/16 09:06 Dose: 0.05 mg Lorazepam (Ativan) 1 mg IVP Q4HR PRN; Protocol PRN Reason: Agitation Stop: 12/22/16 21:46 Last Admin: 10/24/16 12:38 Dose: 1 mg Magnesium Hydroxide (Milk Of Magnesia) 30 ml GT Q72H PRN PRN Reason: Constipation Stop: 12/15/16 16:00 Last Admin: 10/21/16 16:12 Dose: 30 ml Magnesium Oxide (Mag-Oxide) 400 mg GT DAILY [facility] Stop: 12/16/16 08:59 Last Admin: 10/25/16 09:06 Dose: 400 mg Metoclopramide HCl (Reglan) 10 mg PO ACHS [facility] Stop: 12/23/16 11:29 Last Admin: 10/25/16 07:44 Dose: 10 mg Ondansetron HCl (Zofran) 4 mg IV Q4HR PRN PRN Reason: Nausea / Vomiting Stop: 12/20/16 09:49 Pantoprazole Sodium (Protonix) 10 mg GT DAILY [facility] Stop: 12/16/16 08:59 Last Admin: 10/25/16 09:06 Dose: 10 mg Promethazine HCl/Dextromethorphan (Phenergan Dm 6.25/15mg-5 Ml) 5 ml GT Q4HR PRN PRN Reason: Cough Stop: 12/15/16 16:17 Last Admin: 10/23/16 02:58 Dose: 5 ml Sennosides (Senna Plus 50 Mg-8.6 Mg) 1 tab PO BID [facility] Stop: 12/17/16 09:44 Last Admin: 10/25/16 09:06 Dose: 1 tab Sodium Phosphate (Fleet Enema) 135 ml RC Q96H PRN PRN Reason: Constipation Stop: 12/15/16 16:00 Last Admin: 10/21/16 16:44 Dose: 135 ml Valproate Sodium (Depakene) 250 mg GT BID [facility] Stop: 12/15/16 16:59 Last Admin: 10/25/16 09:06 Dose: 250 mg Vancomycin HCl (Vancomycin Oral) 250 mg GT QID [facility] Stop: 12/20/16 12:59 Last Admin: 10/25/16 09:07 Dose: 250 mg Warfarin Sodium (Coumadin Per Pharmacy) 1 ea MC PRN PRN; Protocol PRN Reason: RX MONITORING Stop: 12/21/16 15:45 Warfarin Sodium (Coumadin) 9 mg PO 1300 ONE Stop: 10/25/16 13:01 General: No acute distress HEENT: Atraumatic Neck: Supple Cardiovascular: Regular rate Lungs: Clear to auscultation Abdomen: Bowel sounds, Soft, Other (INTACT GT) - Procedures Procedures: Procedures Procedure Code Date CHANGE GASTROSTOMY TUBE 07349 03/13/15 REPLACE GASTROSTOMY TUBE 97.02 03/13/15 REPOSITION GASTROSTOMY TUBE 56865 12/25/14 Assessment/Plan - Problem List Patient Problems: All Active Problems Active autistic disorder (Acute) Attention to gastrostomy (Acute) CONGESTION (Acute 08/05/15) Epilepsy (Acute) G40.909 Fever (Acute) R50.9 Fever (Acute) R50.9 Fever determined by examination (Acute) R50.9 G-TUBE OUT (Acute) Mechanical complication of gastrostomy (Acute) K94.23 Severe mental retardation (Acute) F72 - Assessment Assessment: 1. ABD DISTENSION - INITIAL FECAL IMPACTION, NOW RESOLVED WITH BOWEL PREP; ALSO C DIFF COLITIS. CT SHOWED DILATED SB/COLONIC LOOPS WITHOUT OBVIOUS OBSTRUCTION. 2. DYSPHAGIA S/P GT. 3. MR. 4. ANEMIA. - Plan Plan: 1. GT FEEDS TOLERATED. 2. LAXATIVES TO BE CONTINUED. 3. VANCO PER GT TO COMPLETE 10-14 DAY COURSE. 4. PROBIOTICS. 5. GI LEIGH STABLE.
--- NOTE | 2016-10-25 17:35 | Diagnostic Imaging Report ---
CHEST X-RAY: AP view INDICATION: Shortness of breath COMPARISON: 10/24/2016 FINDINGS: Mild CHF is seen with small right effusion suspected. Borderline cardiomegaly is noted. IMPRESSION: Mild CHF with small right effusion suspected. Pneumonia of the right lung base cannot be excluded.
--- NOTE | 2016-10-25 18:59 | Consultation ---
SURGICAL CONSULTATION: REFERRING PHYSICIAN: Cruz Casas M.D. REASON FOR CONSULTATION: Need for central line. Thank you for referring this patient to me. HISTORY OF PRESENT ILLNESS: This is a 61-year-old male who is mentally retarded and comes in because of chest congestion, cough and emesis. Other comorbidities include COPD, hypertension, hypothyroidism, chronic anemia, DVT of lower extremities. The patient is for discharge, but needs a central line for medications and fluids. The patient is mentally retarded, unable to communicate whatsoever. Consent was given by family. PLAN: Place a central line at the left subclavian location under ultrasound guidance. JOB# [id number]
--- NOTE | 2016-10-25 19:32 | Operative Report ---
PREOPERATIVE DIAGNOSES: 1. Mental retardation 2. Chronic obstructive pulmonary disease. POSTOPERATIVE DIAGNOSES: 1.Mental retardation. 2.Chronic obstructive pulmonary disease. OPERATION DONE: Insertion of central line, left subclavian vein under ultrasound guidance. PROCEDURE: The left chest was prepped with ChloraPrep and draped in appropriate manner. Ultrasound was used to locate subclavian vessels. 1% lidocaine was used to infiltrate the area and a size 18 needle was used to locate the vein ____ puncture. The guide was inserted, the dilator, and then the triple-lumen catheter. It was anchored to the chest wall with 3-0 silk. Portable chest x-ray will be done. JOB# [id number]
[2016-10-26] MEDS ORDERED: KCL 20mEq/100mL Premix 20 MEQ/100 ML PIGGYBACK IV ONE ×2 (00:05)
[2016-10-26] MEDS: Cefepime 1 GM in Sodium Chloride 0.9% 100 ML IV SCH (00:12)
[2016-10-26] MEDS: Albuterol/Ipratropium Neb 3 ML AERS HHN SCH ×2 (02:54→09:27)
[2016-10-26] MEDS: KCL 20mEq/100mL Premix 20 MEQ/100 ML PIGGYBACK IV SCH (03:32)
[2016-10-26] MEDS: Lactobacillus Rhamnosus 10 Billion CFU Capsule GT SCH (04:24)
[2016-10-26 07:14] LABS: HEMATOCRIT 27.7 % (39.0-49.0); HEMOGLOBIN 9.4 gm/dL (13.2-17.3); MEAN CELL VOLUME 84.2 fl (80-99); MEAN CORPUSCULAR HEMOGLOBIN 28.5 pg (26.0-30.0); MEAN CORPUSCULAR HGB CONC 33.8 pg (28.0-36.0); MEAN PLATELET VOLUME 9.5 fl; RED BLOOD COUNT 3.29 Mil/cmm (4.30-5.70); RED CELL DISTRIBUTION WIDTH 15.6 % (11.5-20.0)
[2016-10-26 07:25] LABS: ANION GAP 5.3 (7.0-16.0); BUN - UREA NITROGEN 13 mg/dL (7-25); BUN/CREATININE RATIO 21.7; CALCIUM SERUM 8.4 mg/dL (8.6-10.3); CARBON DIOXIDE 33.3 mEq/L (21.0-31.0); CHLORIDE 107 mEq/L (98-107); CREATININE - SERUM 0.6 mg/dL (0.7-1.3); GLUCOSE 157 mg/dL (70-105); MAGNESIUM 1.7 mg/dL (1.9-2.7); POTASSIUM SERUM 3.6 mEq/L (3.5-5.1); SODIUM SERUM 142 mEq/L (136-145)
[2016-10-26 07:30] LABS: WHITE BLOOD COUNT 7.7 Th/cmm (4.8-10.8)
[2016-10-26 07:31] LABS: PLATELET COUNT 138 Th/cmm (150-400)
[2016-10-26 08:00] LABS: INR 2.2 (0.5-1.4); PROTHROMBIN TIME (TEST) 22.9 SECONDS (9.5-11.5)
[2016-10-26] MEDS: Ferrous Sulfate 300 MG/5 ML UDC GT SCH (09:01)
[2016-10-26] MEDS: Docusate Sodium 100 mg/10 mL UD GT SCH (09:01)
[2016-10-26] MEDS: Levothyroxine 0.05 Mg Tab GT SCH (09:02)
[2016-10-26] MEDS: Calcium Carb/Vit D 500 mg/200 U Tab GT SCH (09:02)
[2016-10-26] MEDS: Docusate Sodium/Senna Tab PO SCH (09:02)
[2016-10-26] MEDS: Pantoprazole 40 mg/Packet GT SCH (09:02)
[2016-10-26] MEDS: Lactulose 10 Gm/15 mL 30mL UDC GT SCH (09:03)
[2016-10-26] MEDS: Vancomycin HCL 250 mg /10mL UDC GT SCH (09:03)
[2016-10-26] MEDS: Budesonide 0.5 Mg/2 mL Ud HHN SCH (09:27)
[2016-10-26 10:14] LABS: BAND NEUTROPHILE 6 % (0-10); NEUTROPHILS 78 % (40-80); PLATELET ESTIMATE ADEQUATE (NORMAL); PLATELET MORPHOLOGY NORMAL (NORMAL); TOTAL CELLS COUNTED 100
--- NOTE | 2016-10-26 11:52 | Diagnostic Imaging Report ---
Portable chest x-ray HISTORY: Vascular catheter placement, shortness of breath Compared with prior exam performed earlier in the day (1522 hours), a left-sided vascular catheter is been inserted. The tip is in the region of the superior vena cava. The heart remains enlarged. There is pulmonary vascular redistribution and haziness of the interstitial markings consistent with a degree of congestive heart failure. IMPRESSION: 1. New vascular catheter placement as noted above 2. Persistent cardiomegaly with evidence of a degree of congestive heart failure.
--- NOTE | 2016-10-26 19:09 | Discharge Summary ---
ADDENDUM The patient was not discharged as originally planned on 10/24 secondary to increased congestion and abdominal distention. He underwent a CT of the abdomen and pelvis on 10/24/2016: G-tub was seen within the stomach. The oral contrast is seen within distended stomach and there were distended small and large bowel loops without evidence of obstruction. Oral contrast was seen in the level of the rectum. No evidence of extravasation or of contrast. There was also trace fluid in the right lower quadrant. Appendix was not visualized. There were also bilateral poorly effusions and bibasilar infiltrates and consolidative changes. Anasarca was also noted. 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 There was also central line done by Dr. Loyola on 10/25/2016 without any complications. Since then, the patient has remained stable and by 10/25/2016, he was less congested and was able to tolerate continuous feedings well. His labs have remained stable with a white count of 7.7 and his vital signs have also remained stable since 10/24 with no fever or tachycardia. The medications will remain the same, and he will be discharged to [facility] under the care of Dr. Garber. Uncle was made aware of plan and was agreeable to the transfer. JOB# [id number] MARGIE
== END 2016-10-26 11:50 | DRG 177 ==
LOC: ER 11:56 → MSI 16:10
PROVIDERS: ADMIT Internal Medicine; ATTEND Internal Medicine
PROC: 02HV33Z Insertion of Infusion Device into Superior Vena Cava, Percutaneous Approach (ICD-10-PCS; principal; 2016-10-25)
PROC: B548ZZA Ultrasonography of Superior Vena Cava, Guidance (ICD-10-PCS; 2016-10-25)
DX: J69.0 Pneumonitis due to inhalation of food and vomit (principal); R53.2 Functional quadriplegia; F72 Severe intellectual disabilities; A04.7 Enterocolitis due to Clostridium difficile; R13.10 Dysphagia, unspecified; F03.90 Unspecified dementia, unspecified severity, without behavioral disturbance, psychotic disturbance, mood disturbance, and anxiety; D69.6 Thrombocytopenia, unspecified; Z93.1 Gastrostomy status; F84.0 Autistic disorder; I10 Essential (primary) hypertension; E03.9 Hypothyroidism, unspecified; D64.9 Anemia, unspecified; K56.41 Fecal impaction; K21.9 Gastro-esophageal reflux disease without esophagitis; I34.0 Nonrheumatic mitral (valve) insufficiency; Z86.718 Personal history of other venous thrombosis and embolism; Z87.891 Personal history of nicotine dependence; Z91.030 Bee allergy status
CPT/HCPCS: 36415-UA; 71010-TC; 74000-TC; 80048-TC; 80053-TC; 81001-TC; 83036-90; 83605; 83735-TC; 83880-TC; 85007-TC; 85025-TC; 85027-TC; 85610-TC; 87070; 87086-90; 87230-TC; 90799; 93005; 94640; 94760; J0456; J0692; J0696; J1940; J2060; J3370; J3480; J7030; J7070; J7613; Z7610